=== PATIENT | male | born 1975 | race African-American/Black ===

== ENCOUNTER 2016-06-29 09:36 | Emergency (ER) | payer MEDICAID ==
[~2016-06-29] VITALS: Ht 175.3 cm; Wt 73.0 kg
[~2016-06-29 09:36] MED LIST: BENA10TA3; HYDR25TA PO; IBUP-1510; KEPP500 PO; [UNRECOGNIZED DRUG - REMARK]
[2016-06-29] MEDS ORDERED: ONDANSETRON 4MG ODT PO STA (10:22)
[2016-06-29] MEDS ORDERED: FAMOTIDINE 20MG TABLET PO ONE (10:30)
[2016-06-29 11:00] LABS: BASOPHILS % 0.7 % (0.0-2.0); EOSINOPHILS % 3.6 % (0.0-5.0); HEMOGLOBIN. 14.4 g/dL (14.0-18.0); LYMPHOCYTES % 48.8 % (20.0-50.0); MEAN CORPUSCULAR HGB CONC 32.7 g/dL (31.0-37.0); MEAN CORPUSCULAR VOLUME 91.8 fL (80.0-94.0); MEAN PLATELET VOLUME 9.4 fl (7.4-10.4); MONOCYTES % 12.3 % (2.0-8.0); NEUTROPHILS % 34.6 % (40.0-76.0); PLATELET 202 x1000/uL (130-400); RED BLOOD CELL COUNT 4.79 mill/uL (4.7-6.1); RED CELL DISTRIBUTION WIDTH 14.6 % (11.6-14.6); WHITE BLOOD COUNT 4.6 x1000/uL (4.5-11.0)
[2016-06-29 11:05] LABS: CHLORIDE 114 mEq/L (98-107); INDEX HEMOLYSI 1 (1-3); INDEX ICTERIC 1 (1-4); INDEX LIPEMIC 1 (1-3)
[2016-06-29 11:07] LABS: INR 1.1; PARTIAL THROMBOPLASTIN TIME 24.2 sec (24.0-34.0)
[2016-06-29 11:20] LABS: ALANINE AMINOTRANSFERASE 160 IU/L (13-61); ALBUMIN 4.3 g/dL (3.4-5.0); ANION GAP 9; CALCIUM 8.6 mg/dL (8.5-10.1); CARBON DIOXIDE 27 mEq/L (21-32); LIPASE 113 IU/L (73-393); UREA NITROGEN BLOOD 8 mg/dL (7-21); eGFR > 60 mL/min (>60)
[2016-06-29 11:21] LABS: ETHANOL BLOOD 346 mg/dL
[2016-06-29 11:22] LABS: THYROID STIMULATING HORMONE 0.51 uIU/mL (0.36-3.74)
[2016-06-29 15:45] VITALS: BP 104/62
== END 2016-06-29 16:16 | disposition home or self-care (01) ==
LOC: ER 10:42
DX: F10.229 Alcohol dependence with intoxication, unspecified (principal); R74.0 Nonspecific elevation of levels of transaminase and lactic acid dehydrogenase [LDH]; I11.0 Hypertensive heart disease with heart failure; I50.9 Heart failure, unspecified; J45.909 Unspecified asthma, uncomplicated; F17.210 Nicotine dependence, cigarettes, uncomplicated; F12.10 Cannabis abuse, uncomplicated; Z79.1 Long term (current) use of non-steroidal anti-inflammatories (NSAID); Z79.899 Other long term (current) drug therapy; Y90.6 Blood alcohol level of 120-199 mg/100 ml
CPT/HCPCS: 36415; 80053; 83690; 84443; 85025; 85610; 85730; 93005; 99284; G0482; Q0162; Z7610

== ENCOUNTER 2016-08-13 18:57 | Emergency (ER) | payer SELFPAY ==
[~2016-08-13] VITALS: Ht 175.3 cm; Wt 79.5 kg
[2016-08-14] MEDS ORDERED: BENAZEPRIL 10MG TABLET PO SCH (02:45)
[2016-08-14] MEDS ORDERED: LANSOPRAZOLE 30MG DR CAPSULE NG ONE (02:45)
[2016-08-14 04:25] VITALS: BP 155/100
== END 2016-08-14 04:28 | disposition home or self-care (01) ==
LOC: ER 18:58
DX: I11.0 Hypertensive heart disease with heart failure (principal); R11.2 Nausea with vomiting, unspecified; R10.9 Unspecified abdominal pain; R51 Headache; I50.9 Heart failure, unspecified; J45.909 Unspecified asthma, uncomplicated; G40.909 Epilepsy, unspecified, not intractable, without status epilepticus; F17.210 Nicotine dependence, cigarettes, uncomplicated; F10.21 Alcohol dependence, in remission; F12.10 Cannabis abuse, uncomplicated; Z79.899 Other long term (current) drug therapy
CPT/HCPCS: 99283

== ENCOUNTER 2016-10-01 20:02 | Emergency (ER) | payer SELFPAY ==
[~2016-10-01] VITALS: Ht 175.3 cm; Wt 77.0 kg
[2016-10-02 01:12] VITALS: BP 166/92
== END 2016-10-02 01:14 | disposition home or self-care (01) ==
LOC: ER 20:02
DX: A08.4 Viral intestinal infection, unspecified (principal); I10 Essential (primary) hypertension; J45.909 Unspecified asthma, uncomplicated; F17.210 Nicotine dependence, cigarettes, uncomplicated; F12.10 Cannabis abuse, uncomplicated; Z91.19 Patient's noncompliance with other medical treatment and regimen; Z98.890 Other specified postprocedural states
CPT/HCPCS: 99283

== ENCOUNTER 2017-06-30 11:34 | Emergency (ER) | payer SELFPAY ==
[~2017-06-30] VITALS: Ht 175.3 cm; Wt 75.0 kg
[~2017-06-30 11:34] MED LIST changes: -IBUP-1510; +IBUP-2030
[2017-06-30] MEDS ORDERED: TETANUS, DIPHTHERIA, PERTUSSIS VAC/PF 0.5ML (>7YR OLD) IM ONE (12:00)
[2017-06-30] MEDS ORDERED: BACITRACIN ZINC OINT UDPKT TOP ONE (12:00)
[2017-06-30 12:04] VITALS: BP 168/96
== END 2017-06-30 13:00 | disposition home or self-care (01) ==
LOC: ER 12:58
DX: S61.211A Laceration without foreign body of left index finger without damage to nail, initial encounter (principal); I10 Essential (primary) hypertension; J45.909 Unspecified asthma, uncomplicated; F12.10 Cannabis abuse, uncomplicated; F17.200 Nicotine dependence, unspecified, uncomplicated; W26.0XXA Contact with knife, initial encounter; Y93.89 Activity, other specified; Y92.89 Other specified places as the place of occurrence of the external cause; Y99.8 Other external cause status
CPT/HCPCS: 12002; 90471; 90715; 99283

== ENCOUNTER 2017-07-03 10:14 | Emergency (ER) | payer SELFPAY ==
[~2017-07-03] VITALS: Ht 175.3 cm; Wt 77.0 kg
[2017-07-03 11:47] LABS: CHLORIDE 110 mEq/L (98-107)
[2017-07-03 12:25] VITALS: BP 167/102
[2017-07-03] MEDS ORDERED: BACITRACIN ZINC OINT UDPKT TOP ONE (12:30)
== END 2017-07-03 12:57 | disposition home or self-care (01) ==
LOC: ER 12:15
DX: S61.211A Laceration without foreign body of left index finger without damage to nail, initial encounter (principal); W26.0XXA Contact with knife, initial encounter; I50.9 Heart failure, unspecified; I11.0 Hypertensive heart disease with heart failure; J45.909 Unspecified asthma, uncomplicated; F12.10 Cannabis abuse, uncomplicated; Y93.89 Activity, other specified; Y92.89 Other specified places as the place of occurrence of the external cause; Y99.8 Other external cause status
CPT/HCPCS: 12001; 36415; 80048; 99283; Z7610

== ENCOUNTER 2017-11-27 19:11 | Emergency (ER) | payer SELFPAY ==
[~2017-11-27] VITALS: Ht 175.3 cm; Wt 79.0 kg
[~2017-11-27 19:11] MED LIST changes: +BENA10TA10; -BENA10TA3
[2017-11-27] MEDS ORDERED: OXYCODONE HCL 5MG TABLET PO ONE (23:15)
[2017-11-27] MEDS ORDERED: BENAZEPRIL 10MG TABLET PO ONE (23:45)
[2017-11-27] MEDS ORDERED: IBUPROFEN 400MG TABLET PO ONE (23:45)
[2017-11-28 01:06] VITALS: BP 159/94
== END 2017-11-28 01:20 | disposition home or self-care (01) ==
LOC: ER 19:11
DX: M79.671 Pain in right foot (principal); I11.0 Hypertensive heart disease with heart failure; I50.9 Heart failure, unspecified; J45.909 Unspecified asthma, uncomplicated; F17.200 Nicotine dependence, unspecified, uncomplicated; R56.9 Unspecified convulsions; Z91.14 Patient's other noncompliance with medication regimen
CPT/HCPCS: 73630; 93971; 99284

== ENCOUNTER 2022-08-03 02:30 | Emergency (ER) | payer MEDICAID ==
[~2022-08-03] VITALS: Ht 172.7 cm; Wt 79.0 kg
[~2022-08-03 02:30] MED LIST changes: -BENA10TA10; +BENA10TA74
[2022-08-03] MEDS ORDERED: AMLODIPINE 10MG TABLET PO ONE (03:00)
[2022-08-03] MEDS ORDERED: LEVETIRACETAM 500MG TABLET PO ONE (03:00)
[2022-08-03 05:36] VITALS: BP 141/95
[2022-08-03] MEDS ORDERED: KEPP500 MT (05:47)
== END 2022-08-03 06:00 | disposition home or self-care (01) ==
LOC: ER 02:30
DX: R56.9 Unspecified convulsions (principal); F17.200 Nicotine dependence, unspecified, uncomplicated; I11.0 Hypertensive heart disease with heart failure; I50.9 Heart failure, unspecified; J45.909 Unspecified asthma, uncomplicated
CPT/HCPCS: 99283

== ENCOUNTER 2023-12-03 09:04 | Emergency (ER) | payer OTHER ==
[~2023-12-03] VITALS: Ht 172.7 cm; Wt 60.0 kg
[~2023-12-03 09:04] MED LIST changes: -IBUP-2030; +KEPP500 MT; -KEPP500 PO; -[UNRECOGNIZED DRUG - REMARK]
[2023-12-03 09:06] VITALS: O2SAT 100
[2023-12-03 09:13] VITALS: BP 137/86; PULSE 71; RESP 18; TEMP 98.3
== END 2023-12-03 10:54 | disposition home or self-care (01) ==
LOC: ER 09:12
DX: S01.01XD Laceration without foreign body of scalp, subsequent encounter (principal); E78.00 Pure hypercholesterolemia, unspecified; J45.909 Unspecified asthma, uncomplicated; I11.0 Hypertensive heart disease with heart failure; I50.9 Heart failure, unspecified; Z98.890 Other specified postprocedural states; Z79.899 Other long term (current) drug therapy; X58.XXXD Exposure to other specified factors, subsequent encounter
CPT/HCPCS: 99281; Z7610 ×2